=== PATIENT | female | born 1975 ===

== ENCOUNTER 2018-08-10 16:54 | Emergency (ER) | payer MEDICAID ==
[2018-08-10 17:23] VITALS: BP 138/85; PULSE 97; RESP 18; TEMP 99.6; O2SAT 99
--- NOTE | 2018-08-10 17:36 | C.PDOC ---
History Of Present Illness 43-year-old female, presents to the emergency department with complaints of pleuritic chest pain and cough ongoing for the past few days. Patient states she only has pain when she coughs. She denies fever, shortness of breath, nausea/vomiting or any other associated symptoms. No other complaints at this time. Time Seen by Provider: 08/10/18 17:19 Chief Complaint (Nursing): Chest Pain History Per: Patient History/Exam Limitations: no limitations Past Medical History Reviewed: Historical Data, Nursing Documentation, Vital Signs Vital Signs: Last Vital Signs Temp 99.6 F 08/10/18 17:20 Pulse 97 H 08/10/18 17:20 Resp 18 08/10/18 17:20 BP 138/85 08/10/18 17:20 Pulse Ox 99 08/10/18 17:20 - Medical History PMH: HTN, Hypercholesterolemia Surgical History: Appendectomy Family History: States: No Known Family Hx - Social History Hx Alcohol Use: No Hx Substance Use: No - Immunization History Hx Tetanus Toxoid Vaccination: No Hx Influenza Vaccination: No Hx Pneumococcal Vaccination: No Review Of Systems Respiratory: Positive for: Cough, Pleuritic Pain. Negative for: Shortness of Breath, Wheezing Gastrointestinal: Negative for: Nausea, Vomiting Physical Exam - Physical Exam Appears: Non-toxic, No Acute Distress Skin: Warm, Dry, No Rash Head: Atraumatic, Normacephalic Eye(s): bilateral: Normal Inspection Nose: Normal Oral Mucosa: Moist Lips: Normal Appearing Neck: Normal ROM Cardiovascular: Rhythm Regular, No Murmur Respiratory: Normal Breath Sounds, No Accessory Muscle Use, No Rales, No Rhonchi, No Wheezing Gastrointestinal/Abdominal: Soft, No Tenderness Extremity: Normal ROM, No Deformity Neurological/Psych: Oriented x3, Normal Speech ED Course And Treatment O2 Sat by Pulse Oximetry: 99 Pulse Ox Interpretation: Normal (RA) - Radiology CXR: Interpreted by Me CXR Interpretation: Yes: No Acute Disease Disposition Counseled Patient/Family Regarding: Studies Performed, Diagnosis, Need For Followup, Rx Given - Disposition Referrals: YOUR,PMD [Other] [facility] [Outside] [facility] [Outside] Disposition: HOME/ ROUTINE Disposition Time: 18:05 Condition: IMPROVED Prescriptions: Azithromycin 250 mg PO DAILY #6 tab Benzonatate [Tessalon Perles] 200 mg PO TID PRN #15 sgl PRN Reason: Cough Ibuprofen [Motrin] 600 mg PO Q6 #30 tab Instructions: Acute Bronchitis, Adult (DC) Forms: [facility] (Bulgarian) - Clinical Impression Clinical Impression: Bronchitis - Scribe Statement The provider has reviewed the documentation as recorded by the Scribe (Stephen Whiting) Provider Attestation: All medical record entries made by the Scribe were at my direction and personally dictated by me. I have reviewed the chart and agree that the record accurately reflects my personal performance of the history, physical exam, medical decision making, and the department course for this patient. I have also personally directed, reviewed, and agree with the discharge instructions and disposition.
--- NOTE | 2018-08-10 18:08 | RAD ---
HISTORY: Cough COMPARISON: No prior. TECHNIQUE: Chest PA and lateral FINDINGS: LINES AND TUBES: None. LUNG AND PLEURA: The lungs are well inflated and clear. No pleural effusion or pneumothorax. HEART AND MEDIASTINUM: The heart is not enlarged. No aortic atherosclerotic calcification present. The hilar and mediastinal contours are within normal limits. SKELETAL STRUCTURES: The bony structures are within normal limits for the patient's age. VISUALIZED UPPER ABDOMEN: Normal. OTHER FINDINGS: None. IMPRESSION: No active pulmonary disease.
--- NOTE | 2018-08-11 19:43 | CARD ---
APPROVED REPORT Date of service: 08/10/2018 EKG Measurement Heart [id number] <Conclusion> Normal sinus rhythm Normal ECG
== END 2018-08-10 18:14 | disposition home or self-care (01) ==
LOC: C.ER 16:54
DX: J40 Bronchitis, not specified as acute or chronic (principal)

== ENCOUNTER 2018-08-30 20:48 | Emergency (ER) | payer MEDICAID ==
[2018-08-30 20:53] VITALS: TEMP 98.8
--- NOTE | 2018-08-30 21:31 | C.PDOC ---
History Of Present Illness 43 year old female with PMHx of HTN and DM presents to the ED for evaluation of elevated blood pressure. Patient states she takes 200 mg labetalol which she takes twice a day. Patient states she takes one pill at 07:00 and then one at 19:00. Patient reports she checked her blood pressure at 19:00 and it was 168 systolic and patient took her labetalol then. Patient states she checked her blood pressure again an hour later and saw it was 200 systolic. Patient reports " I did not see the lower number". Patient reports she became dizzy and SOB after looking at her blood pressure. Patient denies fever, chills, headache, visual changes, neck pain/stiffness, syncope, dizziness, SOB, weakness, numbness, nausea, vomiting. Time Seen by Provider: 08/30/18 20:56 Chief Complaint (Nursing): High Blood Pressure History Per: Patient History/Exam Limitations: no limitations Onset/Duration Of Symptoms: Hrs Current Symptoms Are (Timing): Still Present Recent travel outside of the [place]: No Additional History Per: Patient Past Medical History Reviewed: Historical Data, Nursing Documentation, Vital Signs Vital Signs: Last Vital Signs Temp 98.8 F 08/30/18 20:49 Pulse 104 H 08/30/18 20:49 Resp 20 08/30/18 20:49 BP 187/120 H 08/30/18 20:49 Pulse Ox 98 08/30/18 20:49 - Medical History PMH: HTN, Hypercholesterolemia Surgical History: Appendectomy Family History: States: Unknown Family Hx - Social History Hx Alcohol Use: No Hx Substance Use: No - Immunization History Hx Tetanus Toxoid Vaccination: No Hx Influenza Vaccination: No Hx Pneumococcal Vaccination: No Review Of Systems Constitutional: Negative for: Fever, Chills Eyes: Negative for: Vision Change Cardiovascular: Negative for: Chest Pain, Palpitations Respiratory: Negative for: Shortness of Breath Gastrointestinal: Negative for: Nausea, Vomiting, Abdominal Pain Skin: Negative for: Rash Neurological: Negative for: Weakness, Numbness, Headache Physical Exam - Physical Exam Appears: Non-toxic, No Acute Distress Skin: Normal Color, Warm, Dry Head: Atraumatic, Normacephalic Eye(s): bilateral: Normal Inspection, PERRL, EOMI Oral Mucosa: Moist Neck: Normal ROM, Supple Chest: Symmetrical Cardiovascular: Rhythm Regular Respiratory: Normal Breath Sounds, No Rales, No Rhonchi, No Wheezing Gastrointestinal/Abdominal: Soft, No Tenderness, No Guarding, No Rebound Extremity: Normal ROM, No Tenderness, No Swelling Neurological/Psych: Oriented x3, Normal Speech, Normal Cognition, Normal Motor, Normal Sensation Gait: Steady ED Course And Treatment ECG: Interpreted By Me, Viewed By Me ECG Rhythm: Sinus Rhythm Interpretation Of ECG: Normal axis, normal intervals, no ST/T wave changes Rate From EC (BPM) O2 Sat by Pulse Oximetry: 98 (ON RA) Pulse Ox Interpretation: Normal Medical Decision Making Medical Decision Making: Plan: * EKG * Observe patient until blood pressure normalizes Patient's blood pressure improved to 155/79 while in the ED. Patient now states she feels SOB and nasal congestion. Patient continues to deny any other sym ptoms, is conversing without any dyspnea, smiling and laughing. Mother at bedside states she has anxiety. Patient reports she did not follow up with her PMD. Disposition Counseled Patient/Family Regarding: Studies Performed, Diagnosis, Need For Followup - Disposition Referrals: [facility] [Outside] [facility] [Outside] Disposition: HOME/ ROUTINE Disposition Time: 22:40 Condition: STABLE Instructions: High Blood Pressure (DC), Shortness of Breath (Dyspnea), Dizziness, Nonvertigo, (DC) Forms: [facility] (Sri [place]ankan), General Discharge Instructions - POA Present On Arrival: None - Clinical Impression Clinical Impression: Nasal congestion, Hypertension, Dizziness, Dyspnea - Scribe Statement The provider has reviewed the documentation as recorded by the Scribe Jorge Capps All medical record entries made by the Scribe were at my direction and personally dictated by me. I have reviewed the chart and agree that the record accurately reflects my personal performance of the history, physical exam, medical decision making, and the department course for this patient. I have also personally directed, reviewed, and agree with the discharge instructions and disposition.
[2018-08-30 22:43] VITALS: O2SAT 98
[2018-08-30 22:55] VITALS: BP 153/85; PULSE 18; RESP 90
== END 2018-08-30 22:57 | disposition home or self-care (01) ==
LOC: C.ER 20:48
DX: I10 Essential (primary) hypertension (principal); R09.81 Nasal congestion; R42 Dizziness and giddiness; R06.00 Dyspnea, unspecified; E78.00 Pure hypercholesterolemia, unspecified